=== PATIENT | female | born 1975 | race Caucasian/White ===

== ENCOUNTER 2021-10-08 12:43 | Emergency (ER) | payer OTHER, SELFPAY ==
--- NOTE | ~2021-10-08 | XR_ITS ---
EXAMINATION: XR foot LT min 3V DATE: 10/08/2021 13:22 INDICATION: Left foot pain TECHNIQUE: Dorsoplantar, lateral, and 2 oblique views of the left foot were obtained. COMPARISON: None FINDINGS: Bone alignment is normal. There is no fracture. 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 Dorsal soft tissue swelling is noted over the metatarsals. There is internal st abilization hardware in the distal fibula. IMPRESSION: 1. No acute osseous abnormality. Reviewed, dictated and finalized at location A.
[2021-10-08 12:52] VITALS: BP 140/76; PULSE 110; RESP 18; TEMP 37.4; O2SAT 98
[2021-10-08 13:04] VITALS: BP 140/76; PULSE 110; RESP 18; TEMP 37.4; O2SAT 98
--- NOTE | 2021-10-08 13:39 | ED.LOWEXIN ---
HPI - Extremity Injury (Lower) General Chief Complaint: Extremity Injury, Lower Stated Complaint: Left Foot Injury Time Seen by Provider: 10/08/21 13:41 Source: patient, RN notes reviewed and old records reviewed Mode of arrival: ambulatory Limitations: no limitations History of Present Illness HPI Narrative: 46 year old female who presents to [facility] care with complaints of tripping at the side of garage and injured left foot, denies any pain to ankle region. Patient reports that she fell onto rock and tripped on stones with cut to the medial aspect of her left medial knee which is 2cm length and 1cm width. Patient reports that pain is to the left foot medial lateral dorsal regions,using walker to assist with her ambulation into clinic. Patient reports that she has constant throbbing to her left foot rates pain 7/10. MD complaint: foot injury Treatments prior to arrival: cold therapy Related Data Home Medications Medication Instructions Recorded Confirmed etonogestrel 68 mg subdermal 1 implant subdermal ONCE 10/08/21 10/08/21 implant Allergies Allergy/AdvReac Type Severity Reaction Status Date / Time No Known Allergies Allergy Verified 10/08/21 13:04 Review of Systems Review of Systems: CONSTITUTIONAL: Denies fever, chills, or sweats. EYES: Denies visual changes, redness, or discharge. ENT: Denies rhinorrhea, congestion, sore throat, or otalgia. CARDIOVASCULAR: Denies chest pain, palpitations, or edema. RESPIRATORY: Denies cough or dyspnea. GASTROINTESTINAL: Denies abdominal pain, nausea, vomiting, or diarrhea. GENITOURINARY: Denies dysuria or hematuria. SKIN: Denies rash or itching, 2 cm laceration to medial aspect of left knee. MUSCULOSKELETAL: Denies back pain,positive for left dorsal foot pain medial and lateral aspect, or myalgia. NEUROLOGIC: Denies headache, numbness, or weakness. PSYCHIATRIC: Denies anxiety or depression. All systems reviewed & are unremarkable except as noted in HPI and below PMFSH Past Medical History Medical History (Updated 10/09/21 @ 16:15 by Amelia Mckeon NP) Asthma Fracture of both ankles Surgical History Surgical History (Updated 10/09/21 @ 16:14 by Amelia Mckeon NP) History of surgery on lower extremity left ankle ORIF Social History Social History (Updated 10/09/21 @ 16:15 by Amelia Mckeon NP) Smoking status: Never smoker Alcohol intake: current Alcohol use details: rare Substance use: never Living arrangements: with family Gender identity (if verbalized by the patient): Female Comments At time of signature, agree with nursing past medical, surgical, social and family history. There is no relevant family history pertinent to the presenting complaint Exam Narrative: GENERAL: Well-appearing, well-nourished, and in no acute distress. HEAD: Normocephalic, atraumatic. EYES: PERRLA and EOMI. ENT: Nares clear, no rhinorrhea or epistaxis. Mucous membranes moist.TM's normal with good light reflex, throat pink with no lesions or exudates no tonsil swelling NECK: Supple.no lymphadenopathy CHEST: Clear to auscultation. No respiratory distress.SAO2 98% on room air HEART: Regular rate and rhythm. No murmur heard. Normal peripheral pulses. ABDOMEN: Soft, nontender, nondistended, normal active bowel sounds. EXTREMITIES: Normal range of motion. No edema.[place] to dorsal medial and lateral aspect of left foot SKIN: Warm, dry, no rash. 2 cm laceration to medial left knee NEURO: No focal deficits. Alert and oriented x3. Course Course Level of Care: Express Care Visit Vital Signs Vital signs: Vital Signs Temperature 37.4 C 10/08/21 12:52 Pulse Rate 110 H 10/08/21 12:52 Respiratory Rate 18 10/08/21 12:52 Blood Pressure 140/76 10/08/21 12:52 Pulse Oximetry 98 10/08/21 12:52 Oxygen Delivery Room Air 10/08/21 12:52 Temperature 37.4 C 10/08/21 13:04 Pulse Rate 110 H 10/08/21 13:04 Respiratory Rate 18 10/08/21 13:04 Bloo
== END 2021-10-08 15:00 | disposition home or self-care (01) ==
PROVIDERS: Emergency Provider Registered Nurse
DX: S90.32XA Contusion of left foot, initial encounter (principal); S81.012A Laceration without foreign body, left knee, initial encounter; W01.0XXA Fall on same level from slipping, tripping and stumbling without subsequent striking against object, initial encounter; J45.909 Unspecified asthma, uncomplicated
CPT/HCPCS: 12001; 73630; 99203; G0463

== ENCOUNTER 2024-09-21 09:46 | Outpatient (CLI) | payer OTHER, SELFPAY ==
--- NOTE | ~2024-09-21 | US_ITS ---
EXAMINATION: US soft tissue LE RT DATE: 09/21/2024 09:59 INDICATION: Palpable lump at the right hip TECHNIQUE: Multiple grayscale and Doppler ultrasound images of the region of concern at the right hip were obtained. COMPARISON: None FINDINGS/IMPRESSION: There is heterogeneous echogenicity along with bands of posterior acoustic shadowing in the subcutane ous fat centered at the region of concern, potentially inflammatory in etiology. No discrete masses o r abnormal fluid collections identified. Reviewed, dictated and finalized at location A.
== END 2024-09-21 09:47 | disposition home or self-care (01) ==
PROVIDERS: PCP Internal Medicine; Visit Provider Nurse Practitioner
DX: R22.41 Localized swelling, mass and lump, right lower limb (principal)
CPT/HCPCS: 76882

== ENCOUNTER 2025-01-21 12:44 | Outpatient (CLI) | payer OTHER, SELFPAY ==
--- OUTSIDE RECORDS SUMMARY | 2025-01-21 12:48 | XMS_ITS | Clinical Summary ---
Author Organization [facility] Address [address] [place] [phone] Phone Care Team Providers Care Sales Development Specialist Name Role Phone Provider, None Primary Care Provider Unavailabl e Medications Fluticasone Propionate (FLONASE NA) by Nasal route. Active Social History Tobacco Use Types Packs/Day Years Used Date Smoking Tobacco: Never Smokeless Tobacco: Never Comments No Sex and Gender Information Value Date Recorded Sex Assigned at Not on file Legal Sex Female 7:06 PM CDT Gender Identity Not on file Sexual Orientation Not on file Last Filed Vital Signs Vital Sign Reading Time Taken Comments Blood Pressure 132/82 11/14/2020 12:36 PM CDT Pulse 94 11/14/2020 12:36 PM CDT Temperature 37.4 C (99.3 F) 11/14/2020 12:36 PM CDT Respiratory Rate - - Oxygen Saturation 99% 11/14/2020 12:36 PM CDT Inhaled Oxygen Concentration - - Weight - - Height - - Body Mass Index - - Plan of Treatment Health Maintenance Due Date Last Done Comments Hepatitis C Virus (HCV) Screening 1974 TdaP Immunization 1974 Hepatitis B Immunization (1 of 3 - 19+ 3-dose series) 1993 Pap Smear 10/07/1995 Cervical Cancer Screening (CCS) 2004 HPV/Cotest 2004 Cologuard 10/07/2019 Colonoscopy 10/07/2019 Colorectal Cancer Screening 10/07/2019 Immunochemical Fecal Occult Blood 10/07/2019 Pneumococcal Immunization (5 0+ years) (1 of 1 - PCV) 2024 04/21/2004 Zoster Immunization (1 of 2) 2024 Influenza Immunization (#1) 2024 SARS-COV-2 Immunization ( season) 2024 12/22/2020, 12/01/2020 Respiratory Syncytial Virus (RSV) Immunization (Adult) (1 - 1-dose 75+ series) 2049 Pneumococcal Immunization Combined Discontinued 04/21/2004 Human Papillomavirus (HPV) Immunization Aged Out No longer eligible based on patient's age to complete this topic Meningococcal Immunization (ACWY) Aged Out No longer eligible based on patient's age to complete this topic Rotavirus Immunization Aged Out No lo nger eligible based on patient's age to complete this topic Care Teams Sales Development Specialist Relationship Specialty Start Date End Date Provider, None [place] PCP - General 11/14/20
--- OUTSIDE RECORDS SUMMARY | 2025-01-21 12:48 | XMS_ITS | Encounter Summary ---
Author Organization [facility] Address [address] [place] [address] Care Team Providers Care Comb Capper Name Role Phone Skip Bacon MD Primary Care Provide r Ej Han MD Unavailable [phone] Payam Méndez MD Unavailable [phone] Jumana Stanley DO Unavailable [phone] Skip Verma MD Unavailable Tino Cm DO Primary Care Provider [phone] Encounter Details Date Type Department Care Team (Late st Contact Info) Description 03/24/2020 Telephone [facility] [address] [place] [id number] [address] Social History Tobacco Use Types Packs/Day Years Used Date Smoking Tobacco: Never Smokeless Tobacco: Never Alcohol Use Standard Drinks/Week Comments Yes 1 (1 standard drink = 0.6 oz pur e alcohol) 1 time a week PHQ-2 Answer Date Recorded PHQ-2 Total Score (If total score is 3 or more points, staff should administer the PHQ-9) 0 06/28/2019 Comments No Sex and Gender Information Value Date Recorded Sex Assigned at Not on file Legal Sex Female 3:43 PM [employer] Gender Identity Female 11/19/2023 4:45 AM CDT Sexual Orientation Straight 11/19/2023 4 :45 AM CDT Occupation Industry Job Start Date Job End Date 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 Not on file Not on file N ot on file documented as of this encounter Plan of Treatment Not on file documented as of this encounter Visit Diagnoses Not on filedocumented in this encounter Additional Health Concerns Infection Onset Date Last Indicated Resolved Time COVID: Suspected 11/10/2020 11/10/2020 11/10/2020 1:58 PM CDT COVID19 11/10/2020 11/10/2020 11/24/2020 3:05 AM CDT COVID: Recovered Comment:Added based on recent COVID infection. 11/24/2020 11/29/2020 03/24/2021 3:[address] COVID: Suspected 05/31/2024 06/01/2024 06/01/2024 3:07 AM [employer] COVID: Suspected 05/31/2024 06/01/2024 06/01/2024 5:17 PM [employer] COVID19 05/31/2024 05/31/2024 06/10/2024 3:05 AM [employer] COVID: Recovered Comment:Added based on recent COVID infection. 06/10/2024 06/30/2024 09/08/2024 7:26 PM C DT documented as of this encounter Care Teams Comb Capper Relationship Specialty [place] [id number] [address] PCP - General Family Medicine 01/26/19 01/04/25 Tino Cm DO [address] [place] [address] DR FERANNDO Lim [facility] [address] [place] [address] PCP - General Internal Medicine 01/05/25 [place] [id number] [address] Consulting Physician Pulmonary Disease 03/07/19 Payam Méndez MD [address] [place] [address] DR FERNANDO Lim [facility] [address] [place] [address] Consulting Physician Orthopedic Surgery 04/05/19 Jumana Stanley DO [address] [facility] DR FERNANDO Lim [address] [address] Consulting Physician Otolaryngology 06/14/22 Skip Verma MD [address] [facility] DR FERNANDO Lim [address] [address] Consulting Physician General Surgery 02/17/23 documented as of this encounter
--- OUTSIDE RECORDS SUMMARY | 2025-01-21 12:48 | XMS_ITS | Clinical Summary ---
Author Organization [facility] Address [address] [place] [address] Care Team Providers Care Front Services Agent Name Role Phone Ej Han MD Unavailable [phone] Payam Méndez MD Unavailable [phone] Jumana Stanley DO Unavailable [phone] Skip Verma MD Unavailable Tino Cm DO Primary Care Provider [phone] Allergies No known active allergies Medications etonogestreL (NEXPLANON) 68 mg implantIndication s: Contraception Nexplanon 68 mg subdermal implant Inject 1 implant by subcutaneous route. Active albuterol HFA (ProAir HFA) 90 mcg/actuation inhaler Inhale 2 puffs every 4 (four) hours as needed for wheezing or shortness of breath 8.5 g 2 11/24/19 22 Active famotidine (PEPCID) 40 mg tabletIndications :Laryngeal spasm Take 1 tablet (40 mg total) by mouth nightly 90 tablet 3 01/17/20 22 Active docusate sodium (COLACE) 100 mg capsuleIndication s:constipation Take 1 capsule (100 mg total) by mouth 2 (two) times a day for 14 days 28 capsule 01/29/20 24 Active hyoscyamine (OSCIMIN) 0.125 mgIndications:hic cups, stomach spasms Take 1 tablet (125 mcg total) by mouth every 4 (four) hours as needed (hiccups. stomach spasm) for up to 7 days 42 tablet 01/29/20 24 Active albuterol HFA (PROVENTIL HFA,VENTOLIN HFA,PROAIR HFA) 90 mcg/actuation inhalerIndication s:Lower respiratory infection Inhale 2 puffs every 4 (four) hours as needed for wheezing or shortness of breath 1 each 07/01/19 25 Active benzonatate (TESSALON) 200 mg capsuleIndication s:Lower respiratory infection Take 1 capsule (200 mg total) by mouth 3 (three) times a day as needed for cough 42 capsule 07/01/19 25 Active Active Problems Problem Noted Date Diagnosed Date Nexplanon in place 03/31/2024 Overview (03/31/2024): Palced 2020 GSI (genuine stress incontinence), female 2023 Vasomotor symptoms due to menopause 03/31/2024 S/P Enrique fundoplication (w ithout gastrostomy tube) procedure 02/09/2024 Assessment & Plan (02/24/2024 10:04 AM CLINICAL CYTOGENETICS DIRECTOR): She was now nearly 4 weeks out. She can go back to a regular diet. She was getting ready to return to work as well. If she could try and avoid significant heavy lifting it would be ideal for another 4-6 weeks. We have gone over modifiable factors to try and limit this from recurring. One of which would be weight. We are going to send a referral to the dietitian to help her with this. She will call us back with further questions or concerns. Pharyngoesophageal dysphagia 08/07/2022 Gastroesophageal reflux disease 08/07/2022 Assessment & Plan (02/06/2023 10:01 AM CDT): Given the patulous changes of the esophagus she would benefit for yazidi of the anatomy and some form of fundoplication. Definitive case will be determined by manometry. Chronic cough 08/07/2022 Laryngeal spasm 01/16/2022 Assessment & Plan (01/16/2022 10:52 AM CDT): Nasal saline spray (Simply saline, Little Remedies, [place] [facility], [place]) 2 second sprays or 2 squeezes into each nostril while looking down over the sink, do not need to sniff in. Followed Astelin (azelastine) 2 sprays into each nostril while looking down over the sink, do not sniff in or blow nose after use for at least 30 minutes twice daily Continue omeprazole 30-60 minutes before a meal in the morning Pepcid 40 mg at bedtime Prediabetes 11/02/2021 Chronic obstructive lung disease 01/27/2019 Mild persistent asthma without complication 12/2018 BMI 37.0-37.9, adult 08/03/2018 Assessment & Plan (10/14/2018 3:34 PM CDT): Stable BMI. Weight management counseling was provided for 10 minutes. Lifestyle change and diet modification were discussed with the patient in detail. Assessment & Plan (08/03/2018 9:16 PM CDT): Weight management counseling was provided for 10 minutes. Lifestyle change and diet modification were discussed with the patient in detail. Seasonal allergic rhinitis due to pollen 019 Assessment & Plan (01/16/2022 10:52 AM CDT): Nasal saline spray (Simply saline, [employer] Rem[employer], [place] [facility], [place]) 2 second sprays or 2 squeezes into each nostril while looking down over the sink, do not need to sniff in. Followed Astelin (azelastine) 2 sprays into each nostril while looking down over the sink, do not sniff in or blow nose after use for at least 30 minutes twice daily Continue omeprazole 30-60 minutes before a meal in the morning Pepcid 40 mg at bedtime Assessment & Plan (10/14/2018 3:33 PM CDT): We will continue with combination of cetirizine fluticasone nasal spray. Assessment & Plan (08/03/2018 8:56 PM CDT): She has all clinical features of allergic rhinitis including chronic nasal congestion, chronic postnasal drip and runny nose. She was started on fluticasone nasal spray. 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 She was going to think about this. We have further discussed surgery, what to expect before and after and time needed off of work. Given the possible concern for esophageal dysmotility seen on esophagram we are still waiting for manometry and pH testing to be done. She may be in the transition of switching jobs so now is not the best time for her to be taking off work or being able to do lifting restrictions afterwards. She was going to think about weight loss surgery as she transitions jobs and obtained her manometry testing. She will call us back when she has at a better spot to choose whether or not she wants just the hernia fixed or if she will agree to weight loss surgery in addition to this. Esophageal dysmotility 11/21/202202/23 Assessment & Plan (02/06/2023 9:59 AM CDT): It is difficult to tell whether the dysmotility is due to intrinsic esophageal issue or the way the stomach is folding on itself almost creating an esophageal outlet obstruction. Before proceeding she will need to undergo manometry to better try and rule in achalasia. If this is not completely telling endo flip or some other modalities may also be useful. COVID-19 11/10/2020 10/23/2021 Overview (12/01/2020): Treated with steroids, recovered at home. Closed fracture of left distal fibula 03/26/2019 10/23/2021 Overview (03/26/2019): Added automatically from request for surgery [id number] Abnormal finding on GI tract imaging 03/12/2019 10/23/2021 Assessment & Plan (03/12/2019 2:31 PM CLINICAL CYTOGENETICS DIRECTOR): Pt had findings suggestive of distention and tortuosity of esophagus on recent xray. It was recommended that she had EGD with biopsy. This will be setup today. Pt is currently asymptomatic. Abnormal finding on imaging 03/12/2019 06/28/2019 Overview (03/12/2019): Added automatically from request for surgery [id number] Closed fracture of ankle 01/27/201912/2018 Constipation 01/27/2019 01/27/2019 Exacerbation of intermittent asthma 01/27/2019 01/27/2019 GERD (gastroesophageal reflux disease) 01/27/2019 10/23/2021 Assessment & Plan (03/12/2019 2:30 PM CLINICAL CYTOGENETICS DIRECTOR): Pt gets heartburn a couple times a week and takes pepcid which helps relieve the pain. Urinary urgency 01/27/2019 01/27/2019 Exertional shortness of breath 08/03/2018 01/27/2019 Assessment & Plan (10/14/2018 3:32 PM CDT): Etiology is multifactorial includin. Obesity/physical deconditioning. 2. Airway hyperreactivity/asthma. Assessment & Plan (08/03/2018 8:50 PM CDT): Etiology is multifactorial includin. Morbid obesity, 2. Physical deconditioning, 3. Airway hyperreactivity/asthma. Pulmonary function testing and 6 min walk test were ordered. She was advised to continue with Symbicort and albuterol inhaler as needed. Wheezing 08/03/2018 01/27/2019 Assessment & Plan (08/03/2018 9:24 PM CDT): Etiology of wheezing is most probably airway hyperreactivity. Pulmonary function testing was ordered. Bronchitis 03/19/2018 01/27/2019 Assessment & Plan (03/19/2018 11:02 AM CLINICAL CYTOGENETICS DIRECTOR): Take your antibiotic as directed You may take a cough suppressant to calm your cough (dayquil, delsym, or nyquil) If your cough is productive or you have tight chest congestion with thick mucus- you can use a cough expectorant like Mucinex Benadryl/Zyrtec can be used to dry up a runny nose along with a nasal spray like azelastine or mometasone.. The use of Chlorpheniramine (antihistamine) plus pseudoephedrine (decongestant) has been proven to be helpful. Avoid environmental triggers and allergen Drink plenty of fluids and get plenty of rest Tylenol/Motrin for pain/fever If you are not better in the next 5 days, follow up w PCP. Moderate persistent asthma w ith acute exacerbation 03/19/2018 01/27/2019 Assessment & Plan (10/14/2018 3:40 PM CDT): Pulmonary function testing on August 12, 2018 has shown: 1. Air flow limitation consistent with obstructive lung disease, 2. FEV1 has shown significant response to bronchodilators, 3. Mild air trapping, 4. Increased airway resistance. Symbicort was stopped and she was started on on combination of Spiriva Respimat 1.25 mcg 2 puffs once a day and Breo Ellipta 100 mcg 1 puff once a day. She was also advised to continue with albuterol inhaler 2 puffs as needed. Her inhaler technique was reviewed and correct technique was clearly explained and demonstrated. Assessment & Plan (08/03/2018 9:17 PM CDT): She was diagnosed with asthma long time ago based on clinical symptoms and she was started on inhaled bronchodilators however she has never had a PFT done. Currently she is on combination of Symbicort 160 mcg 2 puffs b.i.d. And albuterol inhaler 2 puffs as needed. PFT and 6 min walk test were ordered. Her inhaler technique was reviewed and correct technique was clearly explained and demonstrated. She is up-to-date on flu shot. Assessment & Plan (03/19/2018 1:21 PM CLINICAL CYTOGENETICS DIRECTOR): Asthma is worsening. The patient is experiencing frequent daytime asthma symptoms. She is experiencing frequent nighttime asthma symptoms. Asthma information handout given. Explained the importance of taking her daily medications for her asthma including the singulair and symbicort Refills given because it is not good to be without them. Encouraged her to get a new primary. Card given for the [facility] Closed fracture of ankle, trimalleolar 09/05/2014 01/27/2019 Cough 05/21/2014 01/27/2019 Assessment & Plan (10/14/2018 3:31 PM CDT): Etiology of chronic cough is multifactorial includin. Asthma, 2. Chronic postnasal drip/allergic rhinitis, 3. Acid reflux disease. The patient was started on combination of Breo Ellipta and Spiriva Respimat. She was advised to continue with combination of fluticasone nasal spray and cetirizine. Assessment & Plan (08/03/2018 9:16 PM CDT): Etiology of chronic cough is multifactorial includin. Asthma/airway hyperreactivity, 2. Chronic postnasal drip/allergic rhinitis, 3. Acid reflux disease. PFT and 6 minutes walk test were ordered. The patient has already been referred to GI for evaluation of gas-distended thoracic esophagus/ endoscopy. Immunizations Immunization Administration Dates Next Due Influenza, Unspecified 01/19/2021,01/19/2019 Pfizer SARS-CoV-2 Monovalent Vaccination (12+ Yrs) PURPLE 12/01/2020 Pneumococcal Conjugate Pcv20 10/23/2021 Pneumococcal, Unspecified 04/21/2004 Tdap 03/03/2015 Surgical History Surgery Date Site/Laterality Comments FRACTURE SURGERY 03/31/2019 ENRIQUE FUNDOPLICATION 01/28/2024 Medical History Medical History Date Comments COPD (chronic obstructive pu lmonary disease) Asthma Exacerbation of intermittent asthma 01/27/2019 Wheezing 08/03/2018 Exertional shortness of breath 08/03/2018 Cough 05/21/2014 Moderate persistent asthma w ith acute exacerbation 03/19/2018 Bronchitis 03/19/2018 Constipation 01/27/2019 Gastroesophageal reflux disease 01/27/2019 Urinary urgency 01/27/2019 BMI 37.0-37.9, adult 08/03/2018 Closed fracture of ankle, trimalleolar 5 Closed fracture of ankle 01/27/2019 left di stal fibula Primary osteoarthritis of right knee Abnormal finding on imaging 03/12/2019 Adde d automatically from request for surgery [id number] Seasonal allergies Covid-19 11/10/2020 Treated with neto roids, recovered at home. 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 Hiatal hernia 11/21/2022 Family History Medical History Relation Name Comments Diabetes Father Nelson Looney Heart attack Father Nelson Looney Heart disease Father Nelson Looney Kidney disease Father Nelson Looney chronic kidney failure Father Nelson Looney heart issues Father Nelson Looney Alzheimer's disease Paternal Grandmother Rosita Looney Relation Name Status Comments Father Nelson Looney Mother Alive Paternal Grandmother Rosita Looney Social History Tobacco Use Types Packs/Day Years Used Date Smoking Tobacco: Never Smokeless Tobacco: Never Tobacco Cessation:Counseling Given: Not Answered Alcohol Use Standard Drinks/Week Comments Yes 1 (1 standard drink = 0.6 oz pur e alcohol) 1 time a week AUDIT-C Answer Date Recorded Q1: How often do you have a drink containing alc ohol? Monthly or less 02/24/2024 Q2: How many drinks containi ng alcohol do you have on a typical day when you are drinking? 3 or 4 02/24/2024 Q3: How often do you have si x or more drinks on one occasion? Never 02/24/2024 PHQ-2 Answer Date Recorded PHQ-2 Total Score (If total score is 3 or more points, staff should administer the PHQ-9) 0 10/23/2021 Personal Safety Answer Date Recorded Have you ever been in or are you currently in a harmful physical or emotional relationship or is someone making you feel afraid or unsafe? 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 Not on file Not on file N ot on file Obstetrics History Para Term AB IAB SAB Ectopic Multiple Livin g Live Births 1 1 1 0 0 0 1 1 Date Outcome GA Total Labor Labor/2nd/3rd Weight Sex Type Anes PTL Cherelle A1 A5 Name Clin 2001 Term M Vag-S pont None Living Complications:None Last Filed Vital Signs Vital Sign Reading Time Taken Comments Blood Pressure 124/70 06/30/2024 3:45 PM CDT Pulse 68 06/30/2024 3:45 PM CDT Temperature 36.8 C (98.3 F) 06/30/2024 3:45 PM CDT Respiratory Rate 18 06/30/2024 3:45 PM CDT Oxygen Saturation 98% 06/30/2024 3:45 PM CDT Inhaled Oxygen Concentration - - Weight 95.3 kg (210 lb) 06/30/2024 3:45 PM CDT Height 162.6 cm (5' 4) 06/30/2024 3:45 PM CDT Body Mass Index 36.05 06/30/2024 3:45 PM CDT Plan of Treatment Health Maintenance Due Date Last Done Comments Colon Cancer Screening-Colonoscopy 1974 Hepatitis C Screening 1974 Hepatitis B Screening 1992 Cervical Cancer Screening 11/14/2020 11/15/2019, Breast Cancer Screening-Mammogram 08/27/2022 022, 05/22/2020 Depression Screening 10/23/2022 10/23/2021, 06/28/2019, 01/27/2019 Zoster Vaccine (1 of 2) 2024 Covid-19 Vaccine (3 - season) 12/20/202406/2020, 12/01/2020 Influenza Vaccine (#1) 2024 4, 01/19/2021, 01/19/2019 DTaP/Tdap/Td Vaccine (2 - Td or Tdap) 03/03/2025 Regular Well Visit/Exam 18-64 03/31/2025, 10/23/2021, 11/15/2019 Pneumococcal vaccine <65 Completed 10/23/2021, 04/2004 Medical Devices Implanted Type Area Utility System Repairer Device Identifier Shelf Expiration Date Model / Serial / Lot NI Inc [id number] 91mm 5 Hole Lock Modular Low Profile Fibula Left Distal Plate - [id number] Implanted:Qty: 1 on 03/31/2019 by Payam Méndez MD at [facility] Left: Fibula [employer] [id number] / / [employer] Ar-8827-20 Low Profile Screws 2.7mm 20mm Modular Solid Hexalobe Self Tap - [id number] Implanted:Qty: 1 on 03/31/2019 by Payam Méndez MD at [facility] Left: Fibula [employer] AR-8827-20 / / [employer] [id number] Low Profile Screws 2.7mm 14mm Modular Solid Hexalobe Lock Ankle - [id number] Implanted:Qty: 2 on 03/31/2019 by Payam Méndez MD at [facility] Left: Fibula [employer] AR-8827L-14 / / [employer] Ar-[id number]-16 Low Profile Screws 2.7mm 16mm Modular Solid Hexalobe Lock Ankle - [id number] Implanted:Qty: 1 on 03/31/2019 by Payam Méndez MD at [facility] Left: Fibula [employer] AR-8827L-16 / / [employer] Ar-8835-12 Low Profile Screws 3.5mm 12mm Modular Solid Hexalobe Self Tap - [id number] Implanted:Qty: 3 on 03/31/2019 by Payam Méndez MD at [facility] Left: Fibula [employer] AR-[id number] / / Procedures Procedure Name Priority Date/Time Associated Diagnosis Comments SCREENING MAMMOGRAM BILATERAL W ROMÁN Schedule Routine, Read Routine (OP Routine) 08/27/2021 3:13 PM CDT Screening mammogram, encounter for GENITAL FLUID PAP SMEAR, THIN PREP WITH HPV EVALUATION Routine 11/15/2019 from Last 3 Months or Most Recently Relevant to Health Maintenance Results * Screening Mammogram Bilateral W Román (08/27/2021 3:13 PM CDT) Anatomical Region Laterality Modality Breast Bilateral Mammography 08/28/2021 8:07 AM CDT Impressions 08/28/2021 8:07 AM CDT No evidence of malignancy in either breast. FINAL ASSESSMENT: BI-RADS Category 2: Benign. RECOMMENDATION: Recommend return for annual screening mammogram in 12 months. Electronically signed by: Sophie Larios M.D. Narrative 08/28/2021 8:07 AM CDT EXAMINATION: BILATERAL SCREENING MAMMOGRAM COMPARISON: Multiple prior studies, most recently 06/19 and dating back to 05/22/2020. [facility] TECHNIQUE: Full-field 2D and digital breast tomosynthesis (DBT) images were obtained. CAD was utilized. BREAST PARENCHYMAL COMPOSITION: There are scattered areas of fibroglandular density. FINDINGS: There is no suspicious mass, calcification, or distortion in either breast. Stable nodule is seen bilaterally consistent with cysts on previous examination. There has been no significant interval change from the prior study. us Self Screening Mammogram IMG MAMMO PROCEDURES Fi nal Result * Genital fluid pap smear, thin prep with HPV evaluation (11/15/2019) 11/15/2019 Impressions Skip Bacon MD - 11/17/2019 NIELM, negative HPV Historical Provider LAB CYTOLOGY ORDERABLES F inal Result from Last 3 Months or Most Recently Relevant to Health Maintenance Insurance [facility] PLUS [facility] [employer] PLUS [employer] PLANS Address: [facility] [id number] [place] [address] [facility] CHO[employer] PLUS WORKERS COMPENSATION GENERIC Advance Directives For more information, please contact: [phone] * Full Code (Latest Code Status on File) Date Activated Date Inactivated Comments 01/28/2024 11:41 AM 01/29/2024 2:36 PM * Full Code Date Activated Date Inactivated Comments 11/06/2022 11:25 AM 11/06/2022 8:19 PM * Full Code Date Activated Date Inactivated Comments 11/06/2022 11:25 AM 11/06/2022 11:25 AM Care Teams Front Services Agent Relationship Specialty Start Date End Date Tino Cm DO [address] FERNANDO Lim [facility] [address] [place] [address] PCP - General Internal Medicine 01/05/25 Ej Han MD Consulting Physician Pulmonary Disease 03/07/19 Payam Méndez MD [address] FERNANDO Lim [facility] [address] [place] [address] Consulting Physician Orthopedic Surgery 04/05/19 Jumana Stanley DO [address] FERNANDO Lim [facility] [address] [place] [address] Consulting Physician Otolaryngology 06/14/22 Skip Verma MD [address] FERNANDO Lim [facility] [address] [place] [address] Consulting Physician General Surgery 02/17/23
--- OUTSIDE RECORDS SUMMARY | 2025-01-21 12:48 | XMS_ITS | Encounter Summary ---
Author Organization [facility] Address 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
--- OUTSIDE RECORDS SUMMARY | 2025-01-21 12:48 | XMS_ITS | Clinical Summary ---
Author Organization [facility] [employer] Address [address] [place] [address] Care Team Providers Care Well Control Instructor Name Role Phone Ajay Xiao MD Unavailable [phone] Cami Belle MD Primary Care Provider [phone] Source Comments [facility] [employer],non-owned Affiliates and Associated Physician Practices is amultiple site organization consisting of ambulatory clinics and hospital sitesin [place], [place], [place] and [place]. This disclosure is being madepursuant to the Care Everywhere program and may not contain all information available regarding this patient. Last updated 18.[employer] Allergies No known active allergies Medications * Be aware that medications may not be up to date on this document. Alwaysverify current medications with the patient. albuterol (5 MG/ML) 0.5% 2.5 mg, ipratropium 0.02 % 0.5 mg Inhale by mouth. Active hydrocodone-acet aminophen (NORCO) 5-325 MG tablet Take 1 Tab by mouth every 4 hours as needed for Pain. Active montelukast (SINGULAIR) 5 MG chew tablet Take 5 mg by mouth at bedtime. Active ondansetron (ZOFRAN) 4 MG tablet Take 4 mg by mouth every 6 hours as needed for Nausea/Vomi ting. Active budesonide-formo terol (SYMBICORT) 80-4.5 MCG/ACT inhaler Inhale 2 Puffs by mouth 2 times daily. Active Active Problems Problem Noted Date Diagnosed Date Closed fracture of ankle, trimalleolar 5 Social History Tobacco Use Types Packs/Day Years Used Date Smoking Tobacco: Never Alcohol Use Standard Drinks/Week Comments Not Asked 0 (1 standard drink = 0.6 oz pur e alcohol) Comments Unknown Sex and Gender Information Value Date Recorded Sex Assigned at Not on file Legal Sex Female 4:38 AM [employer] Gender Identity Not on file Sexual Orientation Not on file Last Filed Vital Signs Vital Sign Reading Time Taken Comments Blood Pressure 124/66 09/05/2014 3:27 PM CDT Pulse - - Temperature - - Respiratory Rate - - Oxygen Saturation - - Inhaled Oxygen Concentration - - Weight 86.2 kg (190 lb) 09/05/2014 3:27 PM CDT Height 162.6 cm (5' 4) 09/05/2014 3:27 PM CDT Body Mass Index 32.61 09/05/2014 3:27 PM CDT Plan of Treatment Health Maintenance Due Date Last Done Comments COLOGUARD (AGES 45-75) - COL ON CA SCREENING 1974 COLON MONITORING 1974 COLONOSCOPY - COLON CA SCREENING 1974 CT COLONOGRAPHY - COLON CA SCREENING 1974 Colorectal Cancer Screening 1974 FIT - COLON CA SCREENING 1974 FLEX SIG - COLON CA SCREENING 1974 LIPID TESTING 1974 MAMMOGRAM 1974 HIV SCREENING 1989 HEPATITIS C SCREENING 10/01/1992 DTAP/TDAP/TD VACCINES (1 - Tdap) 1993 HEPATITIS B VACCINE (1 of 3 - 19+ 3-dose series) 1993 DEPRESSION SCREENING 04/21/2024 PNEUMOCOCCAL VACCINE 50+ (1 of 1 - PCV) 2024 ZOSTER VACCINE (1 of 2) 2024 COVID-19 VACCINE (1 - 2023-2 5 season) 2024 INFLUENZA VACCINE (#1) 2024 HIB VACCINE Aged Out No longer eligi ble based on patient's age to complete this topic HPV VACCINE Aged Out No longer eligi ble based on patient's age to complete this topic MENINGOCOCCAL (Group B) VACC INE SHARED DECISION-MAKING Aged Out No longer eligibl e based on patient's age to complete this topic MENINGOCOCCAL GROUPS A/C/Y/W VACCINE Aged Out No longer eligible b ased on patient's age to complete this topic Insurance [facility] [place] [address] Care Teams Well Control Instructor Relationship Specialty Start Date End Date Cami Belle MD PCP - General Internal Medicine 09/05/14 Ajay Xiao MD Orthopedic Surgery 09/05/14
--- OUTSIDE RECORDS SUMMARY | 2025-01-21 12:48 | XMS_ITS | Data Portability ---
Author Organization RONNIE [place] SILVESTRE Address [address] [facility] [place] [id number] Care Team Providers Care Software Validation Engineer Name Role Phone JERALD TOLEDOIE Primary Care Provider Assessment Encounter Date Assessment Date Assessment LastModified by Organization Details LastModified Time 11/19/2017 11/19/2017 Unable to palpate Nexplanon in left arm. Pt states it has been some time since she has been able to feel it herself. Will order ultrasound and then return after results. Schedule with MD for removal. [email or web address] Not available 11/19/2017 11:34:58 Plan of Treatment Reminders Order Date Submit Date Provider Last Modified By Organization Details Last Modified Time Details Appointments None recorded. Lab TSH + free T4, serum 2018 019 CYNTHIA Dubois [facility], [address] [place], [address], 9 11:13:43 CMP, serum or plasma 2018 019 CYNTHIA Dubois [facility], [address] [place], [address], 9 11:13:43 CBC 2018 019 CYNTHIA Dubois [facility], [address] [place], [address], 9 11:13:43 HbA1c (hemoglobi n A1c), blood 2018 019 CYNTHIA Dubois [facility], [address] [place], [address], 9 11:13:43 lipid panel w/ direct LDL, serum 2018 019 CYNTHIA Dubois [facility], [address] [facility] , [place], [id number], 9 11:13:43 Referral orthopedic referral 2018 019 CYNTHIA Yap MD, [address], [place], [address], 9 14:17:21 Procedures None recorded. Surgeries None recorded. Imaging US, upper arm - Nexplanon check on left arm 2017 018 CYNTHIA Not available 8 13:02:46 Medication Orders amoxicilli n 250 mg/5 mL oral suspension 2018 [facility]19 [facility], [address], [place], [place], [id number], 9 15:01:28 Cheratussi n AC 10 mg-100 mg/5 mL oral liquid 2018 019 [facility], [address], [place], [place], [id number], 9 15:19:07 omeprazole 40 mg capsule,de layed release 2018 019 [facility], [address], [place], [place], [id number], 9 14:11:35 Symbicort 160 mcg-4.5 mcg/actuat ion HFA aerosol inhaler 2018 019 [facility]14635, [address], [place], [place], [id number], 9 14:30:48 Ventolin HFA 90 mcg/actuat ion aerosol inhaler 2018 019 [facility] #70755, [address], [place], [place], [id number], 9 14:14:04 Nexplanon 68 mg subdermal implant 2017 018 okolade [facility] [facility] #12586, [address], [place], [place], [id number], 8 16:58:15 Patient TargetsNo targets recorded. Patient Instructions Encounter Date Encounter Id Patient Instructions Last Modified By Organization Details Last Modified Time 11/28/2017 [id number] Follow up in 4 weeks. [email or web address] Not available 11/28/2017 10:32:06 05/06/2018 [id number] When You Want to Lose Weight: Care Instructions Not available 05/06/2018 14:13:15 Indigestion (Dyspepsia): Care Instructions Not available 05/06/2018 14:11:07 08/19/2018 [id number] oreilly's cyst: care instructions Not available 08/19/2018 14:37:33 10/02/2018 [id number] upper respirator y infection (cold): care instructions ssuthan Not available 10/02/2018 15:01:21 Reason for Referral Orthopedic Referral for Syno vial cyst of popliteal space Referring Physician: Rosangela Toledo, Family Medicine, Encounter Date: 08/19/2018 Results Created Date Observation Date Name Description Value Unit Range Abnormal Flag Note LastModifiedBy Organization Detail LastModifiedTime 11/25/19 18 11/24/2017 US, upper arm No observ ation record ed. jovita [place] ([place]) [address] [place], [id number], 12/01/2017 10:31:01 06/18/19 19 04/26/2018 XR, chest No observ ation record ed. Not Available 2018 11:03:05 08/18/19 19 07/16/2018 trans -thor acic echoc ardio gram (TTE) (PROC ) No observ ation record ed. Not Available 2018 12:09:06 08/20/19 19 08/19/2018 XR, knee, 4 or more view No observ ation record ed. [facility] [place] [address] (Radiology) [address] [facility] [place], [address], 08/24/2018 10:54:12 Result Notes Documentation Provider Name and Address Organization Details Recorded Time Cmp, Serum Or Plasma : cmp-wnl, ANTONIO [place], [place] - [facility] 05/27/2018 16:19:44 Lipid Panel W/ Direct Ldl, Serum : low hdl [place], [place] [facility] 05/27/2018 16:19:44 Tsh + Free T4, Serum : wnl [place] [facility] 05/27/2018 16:19:44 Hba1c (hemoglobin A1c), Blood : wn [place] [facility] 05/27/2018 16:19:44 Cbc : wn [place] [facility] 05/27/2018 16:19:44 Problems Name Problem SNOMED Code Status Onset Date Resolution Date Notes Provider Name and Address Organization Details Recorded Time Asthma 847359529 Active Tyra Bhardwajs [place] [facility] 15:50:50 Exacerbatio n of intermitten t asthma 590521827 Active Tyra Bhardwaj[place] [facility] 15:50:50 Chronic obstructive pulmonary disease 94486662 Active [place]ra [place]ba [place] [facility] 15:50:50 Swallowing problem 444162882 Active WITH PILLS [place] [facility] 15:50:50 Urgent desire to urinate 88060296 Active [place] [facility] 15:50:50 Closed fracture of ankle 65345697 Active [place] [facility] 15:50:50 Constipatio n 64677348 Active [place] [facility] 15:50:50 Gastroesoph ageal reflux disease 877969000 Active Tyra ingram, [facility] 6 15:50:50 Persistent asthma 2183205522787 Active Tyra ingram [facility] 6 15:50:50 Cough 49710048 Active 2014 Tyra ingram, [facility] 6 15:50:50 Problem Notes None recorded. Procedures Surgical History Date Name Laterality Status Provider Name and Address Organization Details Recorded Time 8 Control Implant Removal completed Libertad Hameed MD Attn: Accounting,[address] [facility], [place], [address], [facility] 11/28/2017 09:34:22 8 Control Implant Insertion completed Libertad Hameed MD Attn: Accounting,[address] [facility], [place], [address], [facility] 11/28/2017 09:34:30 6 Date of Last Pap Smear completed Tyra Barba [facility] 10/11/2015 15:50:50 5 Control Implant Replacement completed SUSANNAH Hardin Attn: Accounting,[address] [facility], [place], [address], [facility] 11/01/2014 16:31:32 5 Nebulizer tx completed Shana Han [facility] 05/27/2014 11:22:38 Imaging Results None recorded. Procedure Notes None recorded. Medical Equipment None Reported. Allergies No known drug allergies Medications Name Sig Start Date Stop Date Status Note LastModified by Organization Details LastModified Time montelukas t 5 mg chewable tablet Chew 2 tablets every day by oral route. 2014 active Not Available Not Available Not Avai lable Colace 100 mg capsule Take 1 capsule every day by oral route. 2014 active Not Available Not Available Not Avai lable albuterol sulfate 2.5 mg/3 mL (0.083 %) solution for nebulizati on Inhale I vial by nebulizat ion route every 4-6 hours as needed active Not Available Not Available No t Available cetirizine 10 mg tablet active Not Available Not Available Not Available azithromyc in 250 mg tablet TAKE 2 TABLETS (500 MG) BY ORAL ROUTE ONCE DAILY FOR 1 DAY THEN 1 TABLET (250 MG) BY ORAL ROUTE ONCE DAILY FOR 4 DAYS 05/06 completed Not Available Not Available Not Available Pepcid Complete 10 mg-800 mg-165 mg chewable tablet Chew two tablets daily 2018 active Not Available Not Available Not Avai lable hydrocodon e 5 mg-acetami nophen 325 mg tablet Take one tab by mouth wit one plain Tylenol every 4-6 hors as needed -Max Tylenol pe 24 hours = 4000mg active Not Available Not Available No t Available ondansetro n HCl 4 mg tablet active Not Available Not Available Not Available sulfametho xazole 800 mg-trimeth oprim 160 mg tablet active Not Available Not Available No t Available omeprazole 40 mg capsule,de layed release Take 1 capsule every day by oral route. 2018 active Not Available Not Available Not Avai lable amoxicilli n 250 mg/5 mL oral suspension Take 10 mL every 8 hours by oral route for 7 days. active Not Available Not Available No t Available benzonatat e 100 mg capsule Take 1 capsule 3 times a day by oral route for 7 days. 05/06 completed Not Available Not Available Not Available Qvar 40 mcg/actuat ion Metered Aerosol oral inhaler Inhale 2 puffs twice a day by inhalatio n route rinse and spit after use. 06/08 completed still $75 each Not Available Not Available Not Available amoxicilli n 400 mg-potassi um clavulanat e 57 mg chewable tablet 05/06 completed Not Available Not Available Not Available amoxicilli n 400 mg/5 mL oral suspension Take 10 mL twice a day by oral route for 10 days. 10/28 completed Not Available Not Available Not Available methylpred nisolone 4 mg tablets in a dose pack 05/06 completed Not Available Not Available Not Available oxybutynin chloride 5 mg tablet Take 1 tablet twice a day by oral route. 05/06 completed Not Available Not Available Not Available fluticason e propionate 50 mcg/actuat ion nasal spray,susp ension active Not Available Not Available Not Available Vibramycin (calcium) 50 mg/5 mL oral syrup active Not Available Not Available N ot Available ranitidine 15 mg/mL oral syrup Take 10 mL twice a day by oral route for 30 days. 10/28 completed Not Available Not Available Not Available Ventolin HFA 90 mcg/actuat ion aerosol inhaler Inhale 2 puffs every 4-6 hours by inhalatio n route as needed. active Not Available Not Available No t Available albuterol sulfate 10/28 completed Not Available Not Available Not Available Symbicort 160 mcg-4.5 mcg/actuat ion HFA aerosol inhaler Inhale 2 puffs twice a day by inhalatio n route. 08/19 completed Not Available Not Available Not Available Symbicort 80 mcg-4.5 mcg/actuat ion HFA aerosol inhaler INHALE 2 PUFFS BY MOUTH TWICE DAILY, RINSE& SPIT AFTER USE 05/06 completed Not Available Not Available Not Available Nexplanon 68 mg subdermal implant Inject 1 implant by subcutane ous route. 2017 active Not Available Not Available Not Avai lable Breo Ellipta 100 mcg-25 mcg/dose powder for inhalation active Not Available Not Available N ot Available Virtussin AC 10 mg-100 mg/5 mL oral liquid Take 5 mL 3 times a day by oral route as needed for 5 days. active Not Available Not Available No t Available ProAir RespiClick 90 mcg/actuat ion breath activated Inhale 2 puffs every 4 hours by inhalatio n route. 10/28 completed Not Available Not Available Not Available Spiriva Respimat 1.25 mcg/actuat ion solution for inhalation active Not Available Not Available N ot Available Vitals Date Recorded Body height Body mass index (BMI) Body weight Oxygen saturation Oxygen saturation in Arterial blood by Pulse oximetry Heart rate Respiratory rate Body temperature Systolic And Diastolic Provider Name and Address Organization Details Last Updated DateTime 9 162.56 cm 37.2 kg/m2 98556.5 4 g 97 % 97 % 96 /min 20 /min 98.7 [degF] 124/74 mm[Hg] Lisette Lyle [place] - [facility] 9 13:58:55 Date Recorded Body height Body mass index (BMI) Body weight Heart rate Respiratory rate Systolic And Diastolic Provider Name and Address Organization Details Last Updated DateTime 9 162.56 cm 37.8 kg/m2 90107.4 5 g 88 /min 16 /min 110/70 mm[Hg] Afia Castellon [facility] 9 14:32:39 Date Recorded Body height Body mass index (BMI) Body weight Heart rate Respiratory rate Body temperature Systolic And Diastolic Provider Name and Address Organization Details Last Updated DateTime 9 162.56 cm 37.9 kg/m2 145340. 2 g 88 /min 14 /min 99.4 [degF] 126/70 mm[Hg] Kourtney Jasbir mcintosh [facility] - [facility] 9 14:26:26 Date Recorded Body height Body mass index (BMI) Body weight Systolic And Diastolic Provider Name and Address Organization Details Last Updated DateTime 11/19/2017 162.56 cm 37.5 kg/m2 45803.33 g 122/78 mm[Hg] Arely Rivers MA [facility] 11/19/2017 09:08:16 Date Recorded Body height Body mass index (BMI) Body weight Systolic And Diastolic Provider Name and Address Organization Details Last Updated DateTime 11/28/2017 162.56 cm 37.3 kg/m2 07406.69 g 126/72 mm[Hg] Mary Corona MA [facility] 11/28/2017 09:06:38 Social History Question Answer Notes LastModified by [employer] Details LastModified Time Tobacco Smoking Status Never Smoker Not Available [facility] 02/22/2020 03:39:31 What Was The Date Of Your Most Recent Tobacco Screening? 10/02/2018 [id number] Information not available 02/22/2020 Are You Passively Exposed To Smoke? Yes Smokes In Home Information not available 05/27/2014 Sex: Unknown Functional Status Question Answer Note LastModified by [employer] Details LastModified Time What is your level of alcohol consumption? 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 Family History Relationship Description Onset Age of this Age Resolved Age Notes LastModified by Organization Details LastModified Time Father Diabetes mellitus [email or web address] Not available 2015 15:50:50 Father Kidney disease [email or web address] Not available 2015 15:50:51 Father Cardiopulmon sam bypass operation [email or web address] Not available 05/06 14:01:31 Father Cardiac care 14 stints [email or web address] Not available 05/06/2018 14:02:01 Medical History Condition Response Chronic Obstructive Pulmonary Disease Y Asthma Y Gynecological History Statement/Question Response Menses Monthly N STIs/STDs N Date of Last Pap Smear 10/11/2015 Sexual Problems? N Current Control Method Implant LMP Approximate Sexually Active? Y Obstetrics History GPAL:G 1 P 1 0 0 1 Type Value Full Term 1 Living 1 Total 1 Immunizations Vaccine Type Date Status Note Provider Nam e and Address Organization Details Recorded Time pneumococcal, unspecified formulation 04/21/2004 completed Vilma Judd RN [facility], [facility] 05/27/2014 10:06:44 Past Encounters Encounter ID Performer Location Encounter Start Date Encounter Closed Date Diagnosis/Indication Diagnosis SNOMED-CT Code Diagnosis ICD10 Code Diagnosis IMO Codes Diagnosis Note [id number] Shana Han [address] [place] [address] 05/27/2014 10:10:07 05/27/2014 15:48:43 Exacerbation of intermittent asthma 043991832 Chronic ob structive pulmonary disease 61239366 non-smoker , exposed to 2nd hand smoke in home [id number] Shana Han [facility] [address] [place] [address] 06/09/2014 16:49:44 06/09/2014 18:41:42 Chronic obstructive pulmonary disease 29058095 non-smoker , exposed to 2nd hand smoke in home; improved Urgent nakia hortencia to urinate 96000793 [id number] Shana Han [address] [place] [address] 09/01/2014 09:48:45 09/02/2014 16:40:47 Closed fracture of ankle 29324943 08/29/14 - right [id number] Jessica Hamilton [facility] ([address]) [address] [facility] [address] [place] [address] 11/01/2014 15:52:13 11/02/2014 09:53:49 Contraception care management 464251466 Uses contraception 07985415 [id number] Shana Han [facility] [address] [phone] 01/23/2015 15:46:49 01/25/2015 11:03:14 Asthma 211056068 J45.909 Exacerbati on of intermittent asthma 501848068 J45.20 Adult heal th examination 769234251 Z00.00 [id number] Cami Belle MD [facility] [address] [place] [address] 06/08/2015 15:10:03 06/14/2015 15:46:51 Chronic obstructive pulmonary disease 72281209 J44.9 non-smoker , exposed to 2nd hand smoke in home; improved Increased frequency of urination 759535111 R35.0 Adult heal th examination 206497923 Z00.00 Gastroesop hageal reflux disease 090259687 K21.9 Persistent asthma 942176 3714 103 J45.30 Urgent nakia hortencia to urinate 05343122 R39.15 [id number] Jessica Hamilton [facility] ([facility] 122) 2 [facility] [address] [place] [address] 10/11/2015 15:42:05 10/11/2015 16:34:45 Screening mammography 89367581 Z12.31 Gynecologi c examination 33172119 Z01.940 [id number] TACHO HENDERSON NP [address] [place] [id number] 10/28/2016 15:01:32 10/29/2016 12:27:02 Chronic obstructive pulmonary disease 41128555 J41.0 Gastroesop hageal reflux disease 816557932 K21.9 Adult heal th examination 425195557 Z00.00 Plantar fasciitis 607516 003 M72.2 [id number] Ted Mckeon MD [address] [address] 5 04/03/2017 11:35:55 04/04/2017 14:38:05 Acute maxillary sinusitis 18585194 J01.01 Exacerbati on of intermittent asthma 621910498 J45.21 [id number] Ted Mckeon MD [facility] [address] [place] [address] 5 09/12/2017 15:18:07 09/12/2017 16:18:24 Acute bronchitis 35836117 J20.8 Adult heal th examination 756413911 Z00.00 [id number] MD [place] Jay 14 OB [address] [facility] [place] [address] 11/19/2017 08:58:12 11/25/2017 13:12:13 Surveillance of contraception 291953311 Z30.40 [id number] MD [place] Mcgee 14 OB [address] [facility] [place] [address] 11/28/2017 08:51:53 11/28/2017 10:33:45 Contraception care management 968396421 Z30.9 Nexplanon was removed and re-inserte d without complicati ons. Side effect profile of Nexplanon was reviewed with the patient. [id number] MD [place] Aguirre 14 IM [address] [facility] [place] [address] 05/06/2018 13:47:31 05/07/2018 12:23:39 Chronic obstructive pulmonary disease 32577308 J44.9 Counseled on COPD and medication s and the importance of compliance Heartburn 18839359 R12 Counseled on GERD and medication . Encouraged low fat diet, alcohol, spicy greasy foods and caffeinate d beverages. Keep head of bed elevated at night. Do not eat 2-3 hours prior to bedtime. Obesity 230020702 E66.9 [id number] MD [place] Aguirre 14 IM [address] [facility] [place] [address] 08/19/2018 14:24:30 08/20/2018 10:31:23 Synovial cyst of popliteal space 83032740 M71.21 Will do x-ray- referral to orthopedic s for evaluation -does not want rx for Ibuprofen [id number] MD [place] Gonzalez 14 IM [address] [facility] [place] [id number] 10/02/2018 14:16:18 10/05/2018 10:12:35 Acute upper respiratory infection 80146252 J06.9 Hydrate well. Use humidifier Take medication as prescribed , If getting worse come in / go to [facility] Concerns Section Related Observation LastModified by Organization Detai ls LastModified Time None Recorded Concern Status LastModified by Organization Details LastModified Time None Recorded Advance Directives Directive None Recorded Payers Insurance Date Sequence Insurance Name Policy Number Policy Pena Covered Member ID Pena Member ID Guarantor Name 08/24/2018 [facility] Emma Romero 04/04/2016 SLIDING FEE SCHEDULE - DISCOUNT Emma Quanvania 08/11/2017 1 [employer] (MEDICARE REPLACEMENT PPO) Emma Quanvania [id number] Emma Romero 08/11/2017 1 [facility] (PPO) [id number] Emma Romero [id number] Emma Romero 08/11/2017 2 MEDICAID-ID: [facility] Emma Quanvania [id number] Emma Romero 2020 1 [employer] [id number] Emma Quanvania [id number] Emma Romero Notes Date Note Type Note Provider Name and Address Organization Details Recorded Time 8 text/html Pt here for Nexplanon removal and insertion. Doing well, will reschedule annual. STUART Arnett Attn: Accounting[address] [place], [address], [facility] 11/19/2017 11:35:27 8 text/html Patient is here for removal and re-insertion of Nexplanon. Libertad Hameed MD Attn: Accounting[address] [place], [address], [facility] 11/28/2017 10:32:43 9 text/html COPDReported by PatientHPI:For associated symptoms, patient reportscoughbut reportsno snoring,no excessive daytime sleepiness,no arousals from sleep,no dyspnea,no decrease in exercise capacity,no fatigue,not coughing up sputum,no fever,no wheezing,no weight loss, andno depression. For severity, patient reportsnot limiting. Reflux/GERDReported by PatientHPIFor quality, patient reportsburning. For associated symptoms, patient reportsfrequent coughing,heartburn, andbad tastebut reportsno feeling of fullness/mass in throat,no hoarseness,no food getting stuck,no belching/burping,no vomiting,not vomiting blood,no regurgitation,no shortness of breath,no chest pain,no difficulty swallowing,no pain when swallowing,no decreased appetite,no weight loss,no black/tarry stools,no fatigue, andno throat pain. For symptoms, patient reportsasymptomatic,no difficulty swallowing,no pain swallowing,no postprandial pain, andheartburn. For severity, patient reportsimproving. For context, patient reportsnon-smoker,no drug/alcohol abuse,no drug alcohol withdrawal, andnot related to food/drink.ROS as noted in the [facility] RICHARD Spear Attn: Accounting,[address] [place], [address], [facility] 05/07/2018 09:30:41 9 text/html KneeReported by PatientHPIFor associated symptoms, patient reportsswellingbut reportsno weakness,no numbness,no tingling,no redness,no warmth,no ecchymosis,no catching/locking,no popping/clicking,no buckling,no grinding,no instability,no radiation down leg,no drainage,no fever,no chills,no weight loss, andno change in bowel/bladder habits(knot toright knee). For location, patient reportsright. For quality, patient reportsaching. For severity, patient reportsmoderate. For aggravating factors, patient reportsbending/squattin g(putting pressure on knee).fell at work last month-now notes knot that she can move around to front of right kneeROS as noted in the HPI RICHARD Spear Attn: Accounting,[address] [place], [address], [facility] 08/19/2018 14:53:16 9 text/html CoughReported by PatientHPIFor quality, patient reportsharshandbarking( productive). For context, patient reportssmoker (second hand- via in the house). For severity, patient reportsmild (to mod). For timing, patient reportsgradual. For associated symptoms, patient reportsno fever,no chest pain, andno wheezing. For duration, (7 days).ROS as noted in the HPI Raquel Chong MD Attn: Accounting,[address] [place], [address], [facility] 10/02/2018 23:59:07 OBGyn Episode No OBEpisode recorded.
--- OUTSIDE RECORDS SUMMARY | 2025-01-21 12:48 | XMS_ITS | Encounter Summary ---
Author Organization [facility] Healthcare Address [address] [place] [address] Care Team Providers Care Sap Bw Consultant Name Role Phone Skip Bacon MD Primary Care Provide r Ej Han MD Unavailable [phone] Payam Méndez MD Unavailable [phone] Jumana Stanley DO Unavailable [phone] Skip Verma MD Unavailable Tino Cm DO Primary Care Provider [phone] Encounter Details Date Type Department Care Team (Late st Contact Info) Description 09/09/2024 Telephone [facility] at [facility] [id number] [place] [phone] Skip Bacon MD [address] [place] [address] [address] [place] [address] Social History Tobacco Use Types Packs/Day Years [...] on file Legal Sex Female 3: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 Not on file Not on file N ot on file documented as of this encounter Plan of Treatment Not on file documented as of this encounter Visit Diagnoses Not on filedocumented in this encounter Care Teams Sap Bw Consultant Relationship Specialty [place] [id number] [address] [facility] [address] [place] [address] PCP - General Family Medicine 01/26/19 01/04/25 Tino Cm DO [address] [place] [address] DR FERNANDO Lim [facility] [address] [place] [address] PCP - General Internal Medicine 01/05/25 [place] [id number] [address] [facility] [address] [place] [address] Consulting Physician Pulmonary Disease 03/07/19 Payam Méndez MD [address] [place] [address] DR FERNANDO Lim [facility] [address] [place] [address] Consulting Physician Orthopedic Surgery 04/05/19 Jumana Stanley DO [address] [place] [address] DR FERNANDO Lim [address] [address] Consulting Physician Otolaryngology 06/14/22 Skip Verma MD [address] [facility] [address] FERNANDO Lim [address] [address] Consulting Physician General Surgery 02/17/23 documented as of this encounter
--- OUTSIDE RECORDS SUMMARY | 2025-01-21 12:48 | XMS_ITS | Clinical Summary ---
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
--- NOTE | 2025-01-21 14:34 | WPDPFTINT ---
PFT Procedure Performed PFT Procedure Performed Spirometry with Pre/Post Bronchodilator Plethysmography (Lung Vol) Diffusing Cap (DLCO) Flow Vol Loop PFT Interpretation This is a pulmonary function test with pre and post-bronchodilator spirometry, plethysmography and diffusing capacity. The test was performed and results interpreted in accordance with the 2019 and 2005 ATS/ERS Task Force guidelines respectively using the Global Lung Function Initiative-2012 reference equations. Patient demonstrated good effort and cooperation. Reproducibility criteria were met. The quality of the pre bronchodilator spirometry maneuver was Grade A and post bronchodilator spirometry maneuver was Grade A. Findings: Spirometry: The contour the inspiratory expiratory flow tracing are normal. The pre bronchodilator FVC is 2.66 L, 76% predicted. The pre bronchodilator FEV1 is 2.01 L, 72% predicted. The pre bronchodilator FEV1: FVC ratio 76%. The post bronchodilator FVC is 2.74 L, representing a 3% increase. The post bronchodilator FEV1 is 2.07 L, representing a 3% increase. The post bronchodilator FEV1: FVC ratio 76%. Plethysmography: The total lung capacity is 7.46 L, 147% predicted. The functional residual capacity is 4.31 L, 152% predicted. The residual volume is 4.23 L, 236% predicted. The residual volume: Total lung capacity ratio is 57%. Diffusing capacity: The diffusing capacity unadjusted for hemoglobin and carboxyhemoglobin is 22.3, 98% predicted. The diffusing capacity adjusted for alveolar volume is 5.42, 118% predicted. Impression: The FEV1 is less than 80% predicted and the FEV1: FVC ratio is greater than 70% consistent with Preserved Ratio Impaired Spirometry (PRISm) with a low FVC. There is no significant improvement after inhaling a single dose of albuterol. The increase in residual volume to total lung volume ratio is consistent with hyperinflation. The diffusing capacity is normal. There are no prior studies for comparison
== END 2025-01-21 12:45 | disposition home or self-care (01) ==
PROVIDERS: PCP Internal Medicine; Visit Provider Clinical Nurse Specialist
DX: J45.909 Unspecified asthma, uncomplicated (principal)
CPT/HCPCS: 94060; 94726; 94729

== ENCOUNTER 2025-01-27 06:39 | Outpatient (CLI) | payer OTHER, SELFPAY ==
--- NOTE | ~2025-01-27 | CT_ITS ---
EXAMINATION:CT chest high resolution wo de DATE: 01/27/2025 07:10 INDICATION: Unspecified asthma, uncomplicated. TECHNIQUE: Computed tomography (CT) of the chest was performed without intravenous contrast. Automated exposure control and iterative reconstruction technique were employed. The dose-length product (DLP) was 446.75 mGy-cm. COMPARISON: None. FINDINGS: The lungs demonstrate minimal atelectasis. There is mild bronchiectasis in left lower lobe. There is air trapping in right middle lobe. No pleural effusion. The heart size is normal. No pericardial effusion. There is a small sliding hiatal hernia. The bones are unremarkable. IMPRESSION: 1. Mild bronchiectasis in left lung lower lobe. 2. Air trapping in right middle lobe. Reviewed, dictated and finalized at location E.
== END 2025-01-27 06:40 | disposition home or self-care (01) ==
PROVIDERS: PCP Internal Medicine; Visit Provider Clinical Nurse Specialist
DX: J47.9 Bronchiectasis, uncomplicated (principal); J98.11 Atelectasis
CPT/HCPCS: 71250